=== PATIENT | female | born 1950 | race Caucasian/White ===

== ENCOUNTER 2024-01-26 09:38 | Day surgery (SDC) | payer MEDICARE, BC, SELFPAY ==
--- NOTE | 2024-01-26 09:48 | FL_ITS ---
[address] [address] Patient Name: DEAN TOBIAS MRN: [id number] date: 1950 Sex: F Assigned Patient Location: [place] Current Patient Location: [place] Accession/Order Number: [id number] Exam Date: 01/26/2024 10:30 Report Date: 01/26/2024 13:05 At the request of: REX POND Procedure: FL hip inj RT EXAMINATION: FL hip inj RT HISTORY: Primary osteoarthritis of right hip M16.11 COMPARISON: No relevant comparison available. FLUORO DOSE: Unknown TECHNIQUE: A joint injection was performed in the usual sterile manner after obtaining informed consent. Standard level fluoroscopic mode of operation utilized. FINDINGS: JOINT: Right hip. NEEDLE: 22 gauge, 3.5 spinal needle. MEDICATION: 5cc buffered 1% lidocaine for subcutaneous anesthesia 3 mL Omnipaque 240. 40 mg Kenalog. 2 mL 0.5% bupivacaine. TECHNIQUE: Anterior approach with prior localization of the femoral artery. A single stick was successful in gaining access to the joint space. CLINICAL: 0 out of 10 pain before and after the procedure COMPLICATIONS: None. OTHER: Negative. FL/FL hip inj RT IMPRESSION: Technically successful right hip therapeutic arthrogram Electronically authenticated by: MAVIS MCNAIR Date: 01/26/2024 13:05
[2024-01-26] MEDS: LIDOCAINE HCL 10 ML, SODIUM BICARBONATE 1 MEQ INJ (10:30)
[2024-01-26] MEDS: TRIAMCINOLONE ACETONIDE 40 MG/ML VIAL INJ (10:30)
[2024-01-26] MEDS: BUPIVACAINE HCL 0.5% PF 50 MG/10 ML VIAL 2 ML INJ (10:30)
--- NOTE | 2024-01-26 14:05 | SUR.PREOP ---
01/15/24 Pt instructed on procedure, date, time, and prep. Pt made aware to hold ASA x 5 days prior to procedure.
== END 2024-01-26 10:45 | disposition home or self-care (01) ==
LOC: FL 09:40
PROVIDERS: Radiology Diagnostic Radiology; PCP Family Medicine; Visit Provider Orthopaedic Surgery
DX: M16.11 Unilateral primary osteoarthritis, right hip (principal)
CPT/HCPCS: 20610; J0665; J3301; Q9966